=== PATIENT | male | born 1990 | race Caucasian/White ===

== ENCOUNTER 2016-10-02 19:09 | Inpatient (IN) | payer OTHER, BC ==
[~2016-10-02] VITALS: Ht 190.5 cm; Wt 99.8 kg
[~2016-10-02 19:09] MED LIST: CLON0.1T14 PO; DICY20TA28 PO; Gabapentin PO; HYDR-3895 PO; Ibuprofen PO
[2016-10-02 21:50] VITALS: BP 120/80
--- NOTE | 2016-10-02 21:50 | NUR ---
ADMISSION NOTE: Patient is a 26 y.o male admitted at [facility] at approximately 2150pm of 10/02/16 for medically supervised withdrawal from Opiates. Body search done and skin check performed in Room 316, no contraband found. Scratch noted on his left foot, left ankle, & right foot. Pt is cooperative during assessment. Patient is oriented to floor unit and room. Patient follows a regular diet at home with no known food and drug allergies. Pt wishes to be full Code. Patient is alert & oriented x4, ambulatory with a steady gait. Speech is clear and audible. Patient appears anxious but cooperative during interview. No shortness of breath noted. Respiration even & unlabored. Abdomen soft & non-distended. Bowel sounds active in all four quadrants. Patient complains of nausea, 8/10 body aches, mild headache, chills, sweating, stomach cramps, & runny nose. Bilateral hand tremors felt. Patient denies hallucinations. Vitals upon admission: B/P 120/80, NJ 98, Temp 97.9, RR 16, O2Sat 97%. Patient noted with past medical history of Anxiety, Depression, ADD and seizure history (October 2015) d/t benzo withdrawal. No suicide attempt in the past. Pt currently denies SI/HI. Pt was able to provide urine sample for drug screen upon admission and is voiding clear yellow urine with no problems. Substance use: 1. Suboxone- Pt is taking it as prescribed for Opiate maintenance. Patient takes 16mg daily for 2 months. Pt started using it since he wa 22 years old. Last use was 16mg daily yesterday morning 10/01/16. 2. Soma- Pt stated that he was taking three big white pills daily for 2 months. Pt has been taking it since 22 years old. Last use was 3 pills 2 days ago 09/30/16. Treatment History: Pt had multiple treatment history -[facility] in May 2016 Patient denies being hospitalized in the last 30 days. Patient reports his longest period of sobriety was for 6 months from October 2015 to April 2016. Patient reports symptoms when he does not use as shakingm chills, sweating, runny nose, teary eyes, headache, body aches, nausea/vomiting & diarrhea. Patient smokes 10 cigarettes daily. Patient refused pneumonia vaccines, educated patient risk & benefits but still refused. Patient does not have a PCP. Urine drug screen came back negative. Fall & Seizure precautions are in place. All needs attended & met. Safety precautions are in place. Bed locked in lowest position. Both side rails padded & up. Call light within pt's reach. Will continue to monitor. Dr. Grove seen pt. Awaiting for admission order. Will continue to monitor patient.
[2016-10-02] MEDS ORDERED: HYDROXYZINE PAMOATE 25 MG CAPSULE PO PRN (23:15)
[2016-10-02] MEDS ORDERED: LOPERAMIDE HCL 2 MG CAPSULE PO PRN ×2 (23:15)
[2016-10-02] MEDS ORDERED: CLONIDINE HCL 0.1 MG TABLET PO PRN (23:15)
[2016-10-02] MEDS ORDERED: ONDANSETRON 4 MG/2 ML VIAL IM PRN (23:15)
[2016-10-02] MEDS ORDERED: MAG HYDROX/AL HYDROX/SIMETH 30 ML LIQUID UDC PO PRN (23:15)
[2016-10-02] MEDS ORDERED: IBUPROFEN 600 MG TABLET PO PRN (23:15)
[2016-10-02] MEDS ORDERED: ACETAMINOPHEN 325 MG TABLET PO PRN (23:15)
[2016-10-02] MEDS ORDERED: MIRALAX 17 GM POWD.PACK PO PRN (23:15)
[2016-10-02] MEDS ORDERED: METHOCARBAMOL 750 MG TABLET PO PRN (23:15)
[2016-10-02] MEDS ORDERED: BUPRENORPHINE HCL 2 MG TAB.SUBL SL PRN (23:15)
[2016-10-02] MEDS ORDERED: MAGNESIUM HYDROXIDE 30 ML LIQUID UDC PO PRN (23:15)
[2016-10-02] MEDS ORDERED: diphenhydrAMINE 50 MG CAPSULE PO PRN (23:15)
[2016-10-02] MEDS ORDERED: DICYCLOMINE HCL 20 MG TABLET PO PRN (23:15)
[2016-10-02] MEDS ORDERED: KETOROLAC TROMETHAMINE 30 MG INJ IM PRN (23:15)
[2016-10-02 23:27] LABS: *AMPHETAMINE, URINE NEGATIVE (NEGATIVE); *BARBITURATE, URINE NEGATIVE (NEGATIVE); *CANNABINOID, URINE NEGATIVE (NEGATIVE); *COCCAINE, URINE NEGATIVE (NEGATIVE); *OPIATE, URINE NEGATIVE (NEGATIVE); *PHENCYCLIDINE SCREEN,URINE NEGATIVE (NEGATIVE)
[2016-10-02] MEDS ORDERED: BUPRENORPHINE HCL 2 MG TAB.SUBL SL ONE ×2 (23:30→23:45)
[2016-10-02] MEDS ORDERED: GABAPENTIN 300 MG CAPSULE PO SCH (23:30)
--- NOTE | 2016-10-02 23:40 | NUR ---
MEDICATION ADMINISTRATION Patient complains of 8/10 body aches, runny nose, anxiety, nausea, chills, stomach cramps, mild headache. Bilateral hand tremors felt. Administered Subutex 4mg per MD's order. COWS 12 CIWA 8 noted. Will continue to monitor patient.
[2016-10-02] MEDS ORDERED: GABAPENTIN 300 MG CAPSULE ONE (23:44)
[2016-10-03] VITALS: BP 116/63
--- NOTE | 2016-10-03 00:40 | NUR ---
PRN REASSESSMENT PATIENT LYING IN BED AND APPEARS COMFORTABLE. PATIENT VERBALIZED THAT MEDICATION HELPED IN HIS WITHDRAWAL SYMPTOMS. COWS 6 CIWA 3 NOTED AT THIS TIME. VITALS WNL. WILL CONTINUE TO MONITOR.
[2016-10-03 04:00] VITALS: BP 113/59
--- NOTE | 2016-10-03 07:26 | NUR ---
End of Shift Note: Patient is a 26 y/o male admitted last night 10/02/16 for Opiate dependence. Patient reported using Suboxone 16mg daily for 2 months. Patient with past medical history of Anxiety, Depression, ADD & Hx of Seizure(October 2015). Patient is on a regular diet with no known food and drug allergies. Full Code status. Seizure and Fall precaution. Patient noted with right foot scratch, left foot scratch & left ankle scratch. Dressing applied and intact. Patient also noted with scabs on BUE & BLE from scratching and picking. Patient is placed on a 5-day Subutex taper to be started @ 0900 in the morning. Last COWS is 6 CIWA 3 noted. Pt was given a one time dose of Subutex per MD's order. Pt reported that medication is effective in controlling his withdrawal by the decrease in COWS from 12 to 6 and CIWA from 8 to 3. Patient is compliant with medications. Patient still asleep at this time and appears comfortable. Patient remained stable and vitals remains WNL. All needs attended & met. Pt slept for 2 hours. Pt consumed 850ml of fluids. Voided 1x with no bowel movement noted. All needs attended & met. Safety precautions are in place. Will endorse to day shift nurse.
--- NOTE | 2016-10-03 07:29 | NUR ---
Start of Shift Notes: Received patient in his room. Alert and oriented x 4. Appears drowsy upon waking up. Respirations even an unlabored. No SOB noted. Skin warm and dry to touch. Abdomen soft and non-distended. (+) BS in all 4 quadrants. No complains of N/V/D or constipation noted. No complains of dysuria at this time. Ambulatory ad ras with steady gait. Patient is a 26 year old male admitted for subaxone and soma dependence who was placed on a 5-day Subutex taper as ordered. No adverse reactions noted. Has past medical hx of anxiety, depression, ADD and hx of seizures. On fall and seizure precautions. Educated patient on his current plan of care for the day and his medication regimen. On fall and seizure precautions. Encouraged oral fluid intake and encouraged group participation to learn new skills to prevent relapse.
[2016-10-03 08:00] VITALS: BP 117/60
[2016-10-03] MEDS ORDERED: TUBERCULIN,PURIF.PROT.DERIV. 5 TU/0.1 ML TEST ID ONE (09:00)
[2016-10-03] MEDS: NEOMY/BACITRAC/POLYMI OINT 28.35 GM TUBE TOP SCH ×2 (09:00→16:31)
[2016-10-03] MEDS: BUPRENORPHINE HCL 2 MG TAB.SUBL SL SCH ×4 (09:45→21:53)
[2016-10-03] MEDS: MULTIVITAMINS,THERAPEUTIC TABLET PO SCH (09:45)
[2016-10-03] MEDS: GABAPENTIN 300 MG CAPSULE PO SCH ×3 (09:45→21:53)
--- NOTE | 2016-10-03 09:47 | NUR ---
Robaxni and triple ATB refused: Patient complained of 7/10 generalized muscle aches and pain. Offered Robaxin but refused. Also refuses triple ATB ointment to be applied at this time. Education provided regarding risk and benefits. Patient verbalized understanding but still refused. Will continue to monitor closely.
[2016-10-03 10:07] LABS: BASOPHILS % (AUTO) 0.4 % (0.0-2.0); EOSINOPHILS # (AUTO) 0.5 K/uL (0.0-0.7); EOSINOPHILS % (AUTO) 6.2 % (0.0-7.0); HEMATOCRIT 41.1 % (36.7-47.1); HEMOGLOBIN 14.2 g/dL (12.5-16.3); LYMPHOCYTES # (AUTO) 2.4 K/uL (20.0-40.0); LYMPHOCYTES % (AUTO) 32.6 % (20.5-51.5); MEAN CORPUSCULAR HEMOGLOBIN 27.6 uug (23.8-33.4); MEAN CORPUSCULAR HGB CONC 35 g/dL (32.5-36.3); MONOCYTES # (AUTO) 0.6 K/uL (2.0-10.0); MONOCYTES % (AUTO) 8.1 % (0.0-11.0); NEUTROPHILS # (AUTO) 3.8 K/uL (1.8-8.9); NEUTROPHILS % (AUTO) 52.7 % (38.5-71.5); PLATELET COUNT (AUTO) 349 K/uL (152-348); RED BLOOD CELL COUNT(AUTO) 5.13 MIL/uL (4.06-5.63); RED CELL DISTRIBUTION WIDTH 13.2 % (12.1-16.2); WHITE BLOOD COUNT (AUTO) 7.3 K/uL (3.6-10.2)
[2016-10-03 10:17] LABS: ETHANOL < 3 MG/DL (0-0)
[2016-10-03 10:21] LABS: ALANINE AMINOTRANSFERASE 52 U/L (16-63); ALBUMIN 3.8 g/dL (3.4-5.0); ALKALINE PHOSPHATASE 82 U/L (50-136); ASPARTATE AMINOTRANSFERASE 31 U/L (15-37); BILIRUBIN,TOTAL 0.8 mg/dL (0.2-1.0); CALCIUM 8.8 mg/dL (8.5-10.1); CARBON DIOXIDE 29 mmol/L (21-32); CHLORIDE 105 mmol/L (98-107); GFR 91 mL/min (>60); GLUCOSE 112 mg/dL (74-106); MAGNESIUM 1.9 mg/dL (1.8-2.4); POTASSIUM 4.1 mmol/L (3.5-5.1); SODIUM SERUM 140 mmol/L (136-145); TOTAL PROTEIN, SERUM 7.3 g/dL (6.4-8.2); UREA NITROGEN, BLOOD 11 mg/dL (7-18)
[2016-10-03 10:33] LABS: THYROID STIMULATING HORMONE 2.572 mIU/mL (0.358-3.740)
[2016-10-03 10:40] LABS: HIV-1 p24 ANTIGEN NON REACTIVE (NONREACTIVE); HIV-1/2 ANTIBODY NON REACTIVE (NONREACTIVE)
--- NOTE | 2016-10-03 10:44 | NUR ---
Communication: Informed MD Grove regarding patient's constant complain of right knee pain related to his right knee injury. Per , he will enter in orders. Addendum: 10/03/16 at 1045 by WALTER HUNT LVN Error in charting. Charted on wrong patient.
--- NOTE | 2016-10-03 10:48 | NUR ---
MD Communication: Verified with MD regarding patient's hx of Soma use, per MD, start monitoring patient's CIWA q 4 hours and notify him if CIWA >8.
[2016-10-03 12:00] VITALS: BP 96/50
[2016-10-03 16:00] VITALS: BP 133/70
--- NOTE | 2016-10-03 18:49 | NUR ---
End of Shift : Patient is a 26 year old male admitted for subaxone and soma dependence who was placed on a 5-day Subutex taper as ordered. No adverse reactions noted. Has past medical hx of anxiety, depression, ADHD and seizures due to BZO withdrwal. Priot to admission, patient was using 16 mg of Subaxone and 3 big white pills of Soma daily x 2 months. VS monitored closely q 4 hours. No significant abnormalities noted. Withdrawal symptoms were closely monitored. Patient presented with anxiety, sweats, pupil dilation, fine tremors, yawning and anxiety. Initial COWS 11, CIWA 4. Last COWS 7/CIWA 3. Per patient, Subutex has been helping him with his withdrawal symptoms. Unable to participate in group today due to his withdrawal symptoms. Oral fluids encouraged. Appetite fair. Safety precautions in place. All needs met and attended. Will continue to monitor closely.
[2016-10-03] MEDS ORDERED: LORAZEPAM 2 MG/1 ML VIAL IM PRN (19:00)
[2016-10-03] MEDS ORDERED: LORAZEPAM 1 MG TABLET PO PRN ×2 (19:00)
--- NOTE | 2016-10-03 19:15 | NUR ---
Start of Shift Note: Patient is a 26 y/o male admitted last night 10/02/16 for Opiate dependence. Patient reported using Suboxone 16mg daily for 2 months and P[place], pt stated he was taking 3 big white pills daily for 2 months. Patient with past medical history of Anxiety, Depression, ADD & Hx of Seizure(October 2015). Patient is on a regular diet with no known food and drug allergies. Full Code status. Seizure and Fall precaution. Patient noted with right foot scratch, left foot scratch & left ankle scratch. Dressing applied and intact. Patient also noted with scabs on BUE & BLE from scratching and picking. Patient was started today on a 5-day Subutex taper and PRN Ativan for withdrawals. Last COWS is 7 CIWA 3 noted. No PRNs was given to pt during day shift. Patient is alert & oriented x4. Patient is ambulatory with a steady gait. No shortness of breath noted. Respiration even & unlabored. Abdomen soft & non-distended. Bowel sounds active in all four quadrants. Patient complains of nausea. No episode of vomiting noted. Patient appears anxious and slightly agitated. Patient complains of mild headache, sweating, chills, 6/10 leg and back pain. Bilateral hand tremors felt. No hallucinations. Patient denies SI/HI. Safety precautions are in place. Bed locked in lowest position. Both side rails up. Call light within pts reach. Will continue to monitor patient.
[2016-10-03 20:00] VITALS: BP 131/68
[2016-10-03] MEDS: ONDANSETRON ODT 4 MG TAB.RAPDIS SL PRN (21:53)
--- NOTE | 2016-10-03 21:53 | NUR ---
PRN Administration Patient noted with anxiety and agitation. Patient complains of nausea, mild headache, & sweating. No hallucinations noted. Hand tremors felt but not seen. CIWA 9 noted at this time. Vitals WNL. Offered Pain medication but refused. PRN Zofran & Ativan 1mg administered as ordered. Safety precautions are in place. Will continue to monitor patient.
--- NOTE | 2016-10-03 22:53 | NUR ---
PRN Reassessment Patient lying in bed and appears more calm and comfortable. Patient verbalized slight relief from anxiety and decreased in nausea. CIWA 5 noted at this time. All needs attended. Safety precautions are in place. Will continue to monitor patient.
[2016-10-04] VITALS: BP 142/78
[2016-10-04 04:00] VITALS: BP 106/61
--- NOTE | 2016-10-04 07:16 | NUR ---
End of Shift Note: Patient is a 26 y/o male admitted on 10/02/16 for Opiate dependence. Patient with past medical history of Anxiety, Depression, ADD & Hx of Seizure(October 2015). Patient is on a regular diet with no known food and drug allergies. Full Code status. Seizure and Fall precaution. Patient noted with right foot scratch, left foot scratch & left ankle scratch. Dressing applied and intact. Patient also noted with scabs on BUE & BLE from scratching and picking. Patient is on a 5-day Subutex taper and PRN Ativan for withdrawals. Last COWS is 9 CIWA 5 noted. Pt was given a PRN Zofran for nausea and Ativan PRN for a COWS of 5. Pt reported that medication is effective in controlling his withdrawal by the decrease in CIWA from 9 to 5. Patient is compliant with medications. Patient still asleep at this time and appears comfortable. Patient remained stable and vitals remains WNL. All needs attended & met. Pt slept for 7 hours. Pt consumed 2328ml of fluids. Voided 4x with no bowel movement noted. All needs attended & met. Safety precautions are in place. Will endorse to day shift nurse.
--- NOTE | 2016-10-04 07:50 | NUR ---
BEGINNING OF SHIFT Patient endorsement report received from shore working supervisor nurse, all pertinent information discussed. Patient with admitting Dx: opiate Dependence with ongoing 5 day Subutex taper as ordered, patient currently on day 2 of taper. Patient slept for 7 hours, with last ciwa score of: 5 and last cow score of: 5, as per shore working supervisor. Patient received PRN: Zofran and Ativan as per shore working supervisor medication were effective. Fall and seizure precautions observed at all times. Patient received awake, alert and oriented x4, educated regarding plan of care for the day and medication regimen with good verbal understanding. will continue to monitor closely. safety measures in place. call light with in reach.
[2016-10-04 08:33] VITALS: BP 108/65
[2016-10-04] MEDS: MULTIVITAMINS,THERAPEUTIC TABLET PO SCH (08:36)
[2016-10-04] MEDS: GABAPENTIN 300 MG CAPSULE PO SCH ×3 (08:36→21:57)
[2016-10-04] MEDS: BUPRENORPHINE HCL 2 MG TAB.SUBL SL SCH ×3 (08:37→21:57)
[2016-10-04] MEDS: NEOMY/BACITRAC/POLYMI OINT 28.35 GM TUBE TOP SCH ×2 (08:37→17:03)
[2016-10-04 12:59] VITALS: BP 113/71
[2016-10-04 14:06] LABS: HCV AB <0.1 s/co ratio (0.0-0.9); HEPATITIS B CORE AB, IgM Negative (Negative); HEPATITIS B SURFACE AG Negative (Negative)
[2016-10-04 16:45] VITALS: BP 118/77
--- NOTE | 2016-10-04 18:31 | NUR ---
PRN VISTARIL Patient reports increase in anxiety, provided with non pharmacological intervention with no relief, patient administered Vistaril as ordered, will endorse to night nurse nurse, to monitor effectiveness of medication.
--- NOTE | 2016-10-04 19:10 | NUR ---
END OF SHIFT Patient with admitting Dx: opiate dependance and continues on 5 day Subutex taper as ordered, well tolerated, no ASE noted, Patient currently on day 2 of taper. Patient encouraged adequate PO fluid intake as tolerated. 0900 patient presented with: c/o chills, mild bone and joint aches, moist eyes, tremors that can be felt but not seen, irritable, anxiety, and barely sweating with cow score of: 6 and ciwa score of: 5. 1300 assessment patient presented with heart rate of 96, c/o chills, mild bone and joint aches, moist eyes, tremors that can be felt, mild anxiety and barely sweating with cow score of: 6 and ciwa score of: 3. 1700 assessment patient presented with: heart rate of 85, c/o chills, mild bone and joint aches, moist eyes, tremors that can be felt, mild anxiety and barely sweating with cow score of: 6 and ciwa score of: 3.Detox medication effective at reducing withdrawal symptoms. Patient encouraged to attend group therapies/sessions to learn new coping skills to prevent relapse, preferred to stay in room, despite much encouragement. patient denies SI/HI. Administered no PRNs during shift. Safety measures in place. call light kept with in reach. Patient endorsed to carpenter nurse, all pertinent information discussed.
--- NOTE | 2016-10-04 19:15 | NUR ---
Start of Shift Note: Patient is a 26 y/o male admitted last night 10/02/16 for Opiate dependence. Patient reported using Suboxone 16mg daily for 2 months and Soma, pt stated he was taking 3 big white pills daily for 2 months. Patient with past medical history of Anxiety, Depression, ADD & Hx of Seizure(October 2015). Patient is on a regular diet with no known food and drug allergies. Full Code status. Seizure and Fall precaution. Patient noted with scratches & scabs on BUE & BLE from scratching and picking. Patient is on a 5-day Subutex taper and PRN Ativan for withdrawals. Last COWS is 6 CIWA 3 noted. Pt was given PRN Vistaril during day shift. Patient is alert & oriented x4. Patient is ambulatory with a steady gait. No shortness of breath noted. Respiration even & unlabored. Abdomen soft & non-distended. Bowel sounds active in all four quadrants. Patient complains of nausea. No episode of vomiting noted. Patient appears anxious and agitated. Patient complains of mild headache, chills, 5/10 body aches and mild headache. Bilateral hand tremors felt. No hallucinations. Patient denies SI/HI. Safety precautions are in place. Bed locked in lowest position. Both side rails up. Call light within pts reach. Will continue to monitor patient.
--- NOTE | 2016-10-04 19:31 | NUR ---
Prn Vistaril Reassessment Patient lying in bed and appears comfortable. Patient verbalized slight relief from anxiety. Will continue to monitor.
[2016-10-04 20:00] VITALS: BP 111/60
[2016-10-04] MEDS ORDERED: LORAZEPAM 1 MG TABLET PO PRN (21:00)
[2016-10-04] MEDS: ONDANSETRON ODT 4 MG TAB.RAPDIS SL PRN (21:57)
[2016-10-04] MEDS: DICYCLOMINE HCL 20 MG TABLET PO SCH (21:57)
[2016-10-04] MEDS: LORAZEPAM 1 MG TABLET PO PRN (21:57)
--- NOTE | 2016-10-04 21:57 | NUR ---
PRN Administration Patient noted with anxiety and agitation. Patient complains of nausea & mild headache.. No hallucinations noted. Hand tremors felt but not seen. CIWA 6 noted. Vitals WNL. PRN Motrin, Zofran & Ativan 1mg administered as ordered. MD aware. Safety precautions are in place. Will continue to monitor patient.
[2016-10-04] MEDS ORDERED: DICYCLOMINE HCL 20 MG TABLET ONE (22:04)
[2016-10-04] MEDS ORDERED: LORAZEPAM 1 MG TABLET ONE (22:04)
--- NOTE | 2016-10-04 22:57 | NUR ---
PRN Reassessment Patient verbalized slight relief from anxiety and decreased in nausea. Denies headache. CIWA 4 noted at this time. All needs attended. Safety precautions are in place. Will continue to monitor patient.
[2016-10-05] VITALS: BP 115/74
--- NOTE | 2016-10-05 01:49 | NUR ---
PRN Benadryl Patient complains of unable to fall asleep. PRN Benadryl given as ordered. Will continue to monitor.
--- NOTE | 2016-10-05 02:49 | NUR ---
PRN Reassessment Patient asleep at this time and appears comfortable. No s/s of distress noted at this time. No shortness of breath. Safety precautions are in place. will continue to monitor patient.
[2016-10-05 04:00] VITALS: BP 121/68
--- NOTE | 2016-10-05 07:01 | NUR ---
End of Shift Note: Patient is a 26 y/o male admitted on 10/02/16 for Opiate dependence and Soma. Patient with past medical history of Anxiety, Depression, ADD & Hx of Seizure(October 2015). Patient is on a regular diet with no known food and drug allergies. Full Code status. Seizure and Fall precaution. Patient noted with scratches & scabs on BUE & BLE from scratching and picking. Patient is on a 5-day Subutex taper and PRN Ativan for withdrawals. Last COWS is 5 CIWA 2 noted. Pt was given a PRN Zofran for nausea, Motrin for body aches, Benadryl for sleep and Ativan PRN for a CIWA of 6. Pt reported that medication is effective in controlling his withdrawals. Patient is compliant with medications. Patient still asleep at this time and appears comfortable. Patient remained stable and vitals remains WNL. All needs attended & met. Pt slept for 6 hours. Pt consumed 1200ml of fluids. Voided 3x with no bowel movement noted. All needs attended & met. Safety precautions are in place. Will endorse to day shift nurse.
[2016-10-05 08:00] VITALS: BP 110/62
--- NOTE | 2016-10-05 08:00 | NUR ---
START OF SHIFT NOTE Received report from night nurse, 26 year old male admitted for Opiate dependence. Regular diet with no known food and drug allergies. Full Code status. Pt with past medical history of Anxiety, Depression, ADD & Hx of Seizure(October 2015). Patient is on a Seizure and Fall precaution. Pt noted with scratches & scabs on BUE & BLE from scratching and picking. Pt is on a 5-day Subutex taper and PRN Ativan for withdrawals. Pt received PRN Vistaril for anxiety, Last COWS-6 CIWA 3, slept for 6 hours. Received pt alert & oriented x4. No shortness of breath noted. Respiration even & unlabored. Abdomen soft & non-distended. Bowel sounds active in all four quadrants. Pt appears anxious and agitated. No hallucinations. Pt denies SI/HI. Safety precautions are in place, call light within reach. Will continue to monitor.
[2016-10-05] MEDS ORDERED: BUPRENORPHINE HCL 2 MG TAB.SUBL SL SCH (09:00)
[2016-10-05] MEDS: GABAPENTIN 300 MG CAPSULE PO SCH ×3 (09:17→20:25)
[2016-10-05] MEDS: DICYCLOMINE HCL 20 MG TABLET PO SCH ×3 (09:17→20:26)
[2016-10-05] MEDS: MULTIVITAMINS,THERAPEUTIC TABLET PO SCH (09:17)
[2016-10-05] MEDS: NEOMY/BACITRAC/POLYMI OINT 28.35 GM TUBE TOP SCH ×2 (09:18→17:21)
[2016-10-05 12:00] VITALS: BP 114/75
[2016-10-05] MEDS ORDERED: diphenhydrAMINE 2% 28.4 GM CREAM TP PRN (12:00)
[2016-10-05] MEDS: BACLOFEN 10 MG TABLET PO SCH ×2 (15:54→20:25)
[2016-10-05] MEDS: BUPRENORPHINE HCL 2 MG TAB.SUBL SL SCH ×2 (15:54→20:26)
[2016-10-05 16:00] VITALS: BP 124/73
--- NOTE | 2016-10-05 19:22 | NUR ---
END OF SHIFT NOTE Gave report to night nurse, 26 year old male admitted for Opiate dependence. Regular diet with no known food and drug allergies. Full Code status. Pt with past medical history of Anxiety, Depression, ADD & Hx of Seizure(October 2015). Patient is on a Seizure and Fall precaution. Pt noted with scratches & scabs on BUE & BLE from scratching and picking. Pt is on a 5-day Subutex taper and PRN Ativan for withdrawals. Pt did not receive any PRN medication during shift, COWS-5 CIWA 5, Pt's total intake 1900ml, Voided x4. Vital signs remained stable. Pt attended groups and activities. Safety measures in place bed on lowest position with side rails x2 up for safety, call light within reach. Pt endorse pt to night nurse in stable condition. Addendum: 10/05/16 at 1925 by BASSEM ARAYA LVN CORRECT- CIWA-3
[2016-10-05 20:00] VITALS: BP 124/88
--- NOTE | 2016-10-05 20:00 | NUR ---
Start of Shift Pt is a 26 year old male admitted for Opiate dependence, placed on 5 day Subutex taper. Pt reported using Suboxone 16mg/daily x2 months and Soma "3 big white pills/daily x2 months. PMH: anxiety, depression ADD, hx of seizure October 2015 d/t benzo withdrawal. NKA, regular diet, fall/seizure precautions and full code. Upon assessment, pt presented with anxiety/agitated, body/muscle aches, clammy/flushed skin, respirations even/unlabored, denies SOB/chest pain, denies n/v/d, denies SI/HI, bowel sounds active x4, abdomen soft. Safety measures in place, call light within reach, side rails up x2, bed locked and in low position. Will continue to monitor.
[2016-10-05] MEDS: LORAZEPAM 1 MG TABLET PO PRN (20:47)
--- NOTE | 2016-10-05 20:47 | NUR ---
PRN Administration 2046 Pt is anxious/agitated, pt is irritated, restless, face flushed, skin clammy, CIWA 8. Non-pharmacological methods ineffective. Ativan 1mg PRN administered. Safety measures in place. Will continue to monitor.
[2016-10-05] MEDS ORDERED: PRAZOSIN HCL 1 MG CAPSULE PO SCH (21:00)
--- NOTE | 2016-10-05 21:47 | NUR ---
PRN Reassessment Upon reassessment, pt verbalizes that anxiety is subsiding. Pt states he is , "calmer then before". Pt is in bed, watching TV, noted to be less irritated/agitated. CIWA 4. Needs met, safety measures in place, will continue to monitor.
[2016-10-06] VITALS: BP 129/74
--- NOTE | 2016-10-06 | NUR ---
Vital Signs BP 129/74, pulse 97, SpO2 97%, respirations 14, temp 98 CIWA/COWS deferred d/t pt sleeping, to assess while pt is awake as ordered. Safety measures in place. Will continue to monitor.
[2016-10-06 04:00] VITALS: BP 119/69
--- NOTE | 2016-10-06 04:00 | NUR ---
Vital Signs BP 119/69, pulse 98, SpO2 98%, respirations 14, temp 97.9 CIWA/COWS deferred d/t pt sleeping, to assess while pt is awake as ordered. Safety measures in place. Will continue to monitor.
--- NOTE | 2016-10-06 07:00 | NUR ---
End of Shift Pt is a 26 year old male admitted for Opiate dependence, placed on 5 day Subutex taper. Pt reported using Suboxone 16mg/daily x2 months and Soma "3 big white pills/daily x2 months. PMH: anxiety, depression ADD, hx of seizure October 2015 d/t benzo withdrawal. NKA, regular diet, fall/seizure precautions and full code. During shift, pt presented with anxiety/agitation, irritation, body/muscle aches, clammy/flushed skin - scheduled taper medications administered, COWS 5. Ativan 1mg PRN administered, CIWA 8 decreased to CIWA 4. Pt slept for 5 hours, intake of 2300 ml PO and voids x3. Safety measures in place, call light within reach, side rails up x2, bed locked and in low position. Endorsed to day shift nurse.
--- NOTE | 2016-10-06 07:30 | NUR ---
START OF SHIFT NOTE Received report from night nurse, 26 year old male admitted for Opiate dependence. Regular diet with no known food and drug allergies. Full Code status. Pt with past medical history of Anxiety, Depression, ADD & Hx of Seizure(October 2015). Patient is on a Seizure and Fall precaution. Pt noted with scratches & scabs on BUE & BLE from scratching and picking. Pt is on a 5-day Subutex taper and PRN Ativan for withdrawals. Pt received PRN Ativan 1mg for anxiety CIWA was-8 medication effective per night nurse CIWA down to 4, Last COWS-5 CIWA 4, slept for 5 hours. Received pt alert & oriented x4. No shortness of breath noted. Respiration even & unlabored. Abdomen soft & non-distended. Bowel sounds active in all four quadrants. Pt appears anxious and agitated. No hallucinations. Pt denies SI/HI. Safety precautions are in place, call light within reach. Will continue to monitor.
[2016-10-06 08:00] VITALS: BP 102/63
[2016-10-06] MEDS: BACLOFEN 10 MG TABLET PO SCH ×3 (08:20→21:33)
[2016-10-06] MEDS: GABAPENTIN 300 MG CAPSULE PO SCH ×3 (08:20→21:34)
[2016-10-06] MEDS: BUPRENORPHINE HCL 2 MG TAB.SUBL SL SCH ×3 (08:20→21:33)
[2016-10-06] MEDS: DICYCLOMINE HCL 20 MG TABLET PO SCH ×3 (08:20→21:33)
[2016-10-06] MEDS: MULTIVITAMINS,THERAPEUTIC TABLET PO SCH (08:20)
[2016-10-06] MEDS: NEOMY/BACITRAC/POLYMI OINT 28.35 GM TUBE TOP SCH ×2 (08:22→16:37)
[2016-10-06 12:00] VITALS: BP 137/86
[2016-10-06] MEDS ORDERED: MAGNESIUM CITRATE 296 ML BOTTLE PO PRN (12:45)
[2016-10-06] MEDS: DOCUSATE SODIUM 250 MG CAPSULE PO SCH (14:58)
[2016-10-06] MEDS ORDERED: NAPROXEN 500 MG TABLET PO ONE (15:00)
[2016-10-06 16:00] VITALS: BP 127/76
[2016-10-06] MEDS ORDERED: LORAZEPAM 1 MG TABLET PO ONE (16:00)
--- NOTE | 2016-10-06 16:36 | NUR ---
ATIVAN X1 DOSE Pt noted anxious/agitated,restless, face flushed, skin clammy,tremors can be felt, CIWA noted 10, increased HR-114. Non-pharmacological methods ineffective. notified new order to administer Ativan 2mg x1. Administered Ativan 2mg as ordered. Safety measures in place. Will continue to monitor.
--- NOTE | 2016-10-06 17:36 | NUR ---
ATIVAN REASSESSMENT Pt reported medication effective, CIWA noted-2.
--- NOTE | 2016-10-06 19:01 | NUR ---
END OF SHIFT NOTE Gave report to night nurse, 26 year old male admitted for Opiate dependence. Regular diet with no known food and drug allergies. Full Code status. Pt with past medical history of Anxiety, Depression, ADD & Hx of Seizure(October 2015). Patient is on a Seizure and Fall precaution. Pt noted with scratches & scabs on BUE & BLE from scratching and picking. Pt is on a 5-day Subutex taper and PRN Ativan for withdrawals. Pt received x1 dose of Ativan effective. medication during shift, COWS-6 CIWA 2, Pt's total intake 2451ml, Voided x3, BM x1. Vital signs remained stable. Pt attended groups and activities. Safety measures in place bed on lowest position with side rails x2 up for safety, call light within reach. Pt endorse pt to night nurse in stable condition.
[2016-10-06 20:00] VITALS: BP 139/82
--- NOTE | 2016-10-06 20:00 | NUR ---
Start of Shift Pt is a 26 year old male admitted for Opiate dependence, placed on 5 day Subutex taper. Pt reported using Suboxone 16mg/daily x2 months and Soma "3 big white pills/daily x2 months. PMH: anxiety, depression ADD, hx of seizure October 2015 d/t benzo withdrawal. NKA, regular diet, fall/seizure precautions and full code. Upon assessment, pt presents with anxiety/agitation/irritation, clammy/flushed skin, respirations even/unlabored, denies SOB/chest pain, denies SI/HI, bowel sounds active x4, abdomen soft. Safety measures in place, call light within reach, side rails up x2, bed locked and in low position. Will continue to monitor.
[2016-10-06] MEDS: PRAZOSIN HCL 1 MG CAPSULE PO SCH (21:33)
[2016-10-06] MEDS: NAPROXEN 500 MG TABLET PO SCH (21:34)
[2016-10-07] VITALS: BP 128/78
[2016-10-07] MEDS: ONDANSETRON ODT 4 MG TAB.RAPDIS SL PRN (00:03)
--- NOTE | 2016-10-07 00:03 | NUR ---
PRN Administration Pt c/o nausea , no emesis presented. Zofran 4mg ODT administered. Safety measures in place. will continue to monitor.
--- NOTE | 2016-10-07 01:00 | NUR ---
PRN Reassessment Upon reassessment, pt reports relief of nausea. Pt returned to sleep. Safety measures in place. Will continue to monitor
[2016-10-07 04:00] VITALS: BP 110/80
--- NOTE | 2016-10-07 04:00 | NUR ---
Vital Signs BP 110/80, pulse 83, respirations 16, SpO2 97%, temp 98.1, no reports of pain CIWA/COWS deferred d/t pt sleeping, to assess while pt is awake as ordered. Safety measures in place. Will continue to monitor.
--- NOTE | 2016-10-07 07:00 | NUR ---
End of Shift Pt is a 26 year old male admitted for Opiate dependence, placed on 5 day Subutex taper. Pt reported using Suboxone 16mg/daily x2 months and Soma "3 big white pills/daily x2 months. PMH: anxiety, depression ADD, hx of seizure October 2015 d/t benzo withdrawal. NKA, regular diet, fall/seizure precautions and full code. During shift, pt presented with anxiety/agitation/irritation, clammy/flushed skin - scheduled medications administered, CIWA 4 and COWS 4. Zofran 4mg ODT administered for nausea - effective. Pt slept for 5 hours, intake of 1151 ml PO and voids x2. Safety measures in place, call light within reach, side rails up x2, bed locked and in low position. Endorsed to day shift nurse.
--- NOTE | 2016-10-07 07:03 | NUR ---
Start of Shift Endorsement received from nightshift nurse. Pt is a 26 y/o male admitted for Suboxone dependence. Pt has been placed on a 5 day Subutex taper. Pt is tolerating the taper, mildly withdrawing AEB COWS 4, CIWA 4 at midnight. Pt received PRN Zofran for reported emesis and nausea. Pt slept 5 hours, VS WNL, Full Code.PT is alert and oriented x4.Pt is in STABLE condition at this time. Remains compliant with medication and diet regimen. All needs have been met, All safety measures in place per hospital policy. Bed in lowest position, side rails up x2, call-light within reach. Will continue to monitor
[2016-10-07 08:00] VITALS: BP 92/53
[2016-10-07] MEDS: GABAPENTIN 300 MG CAPSULE PO SCH ×3 (08:48→21:28)
[2016-10-07] MEDS: VENLAFAXINE XR 75 MG CAP.SR.24H PO SCH (08:49)
[2016-10-07] MEDS: FAMOTIDINE 20 MG TABLET PO SCH (08:49)
[2016-10-07] MEDS: DICYCLOMINE HCL 20 MG TABLET PO SCH ×3 (08:49→21:30)
[2016-10-07] MEDS: MULTIVITAMINS,THERAPEUTIC TABLET PO SCH (08:49)
[2016-10-07] MEDS: BACLOFEN 10 MG TABLET PO SCH (08:49)
[2016-10-07] MEDS: NAPROXEN 500 MG TABLET PO SCH (08:49)
[2016-10-07] MEDS: DOCUSATE SODIUM 250 MG CAPSULE PO SCH (08:49)
[2016-10-07] MEDS: NEOMY/BACITRAC/POLYMI OINT 28.35 GM TUBE TOP SCH ×2 (08:50→17:00)
[2016-10-07] MEDS ORDERED: BUPRENORPHINE HCL 2 MG TAB.SUBL SL SCH (09:00)
[2016-10-07 12:00] VITALS: BP 100/56
[2016-10-07] MEDS ORDERED: NAPROXEN 500 MG TABLET PO PRN (14:15)
[2016-10-07] MEDS ORDERED: BACLOFEN 20 MG TABLET PO PRN (14:15)
[2016-10-07] MEDS: BUPRENORPHINE HCL 2 MG TAB.SUBL SL SCH ×2 (15:03→21:28)
[2016-10-07 16:00] VITALS: BP 132/77
[2016-10-07] MEDS ORDERED: QUETIAPINE FUMARATE 25 MG TABLET PO PRN (19:15)
--- NOTE | 2016-10-07 19:27 | NUR ---
End of Shift Endorsement given to nightshift nurse. Pt is a 26 y/o male admitted for Suboxone dependence. Pt has been placed on a 5 day Subutex taper. Pt is tolerating the taper, mildly withdrawing AEB COWS 3, CIWA 3 at 1600. Pt participated in one group and activities. Pt did not receive any PRN medications. Intake: 1710ml, Void x2, BM x0. VS WNL, Full Code.PT is alert and oriented x4.Pt is in STABLE condition at this time. Remains compliant with medication and diet regimen. All needs have been met, All safety measures in place per hospital policy. Bed in lowest position, side rails up x2, call-light within reach. Will continue to monitor
--- NOTE | 2016-10-07 19:30 | NUR ---
START OF SHIFT-- Pt is a 26 y/o male admitted for Suboxone dependence. Pt is on a 5 day Subutex taper. Pt is tolerating the taper well, last COWS 3, CIWA 3 at 1600. Full Code status,on regular diet,NKA.Pt is alert and oriented x4.Pt is in STABLE condition at this time. Remains compliant with medication and diet regimen. All needs have been met, All safety measures in place per hospital policy. Bed in lowest position, side rails up x2, call-light within reach. Will continue to monitor.
[2016-10-07 20:00] VITALS: BP 142/79
[2016-10-07] MEDS: PRAZOSIN HCL 1 MG CAPSULE PO SCH (21:30)
[2016-10-08] VITALS: BP 137/66
--- NOTE | 2016-10-08 | NUR ---
MID NIGHT COWS=2,CIWA=1.
--- NOTE | 2016-10-08 04:00 | NUR ---
PT REFUSED V/S.COWS AND CIWA DEFERRED.
--- NOTE | 2016-10-08 06:44 | NUR ---
END OF SHIFT-- Pt is a 26 y/o male admitted for Suboxone dependence. Pt is on a 5 day Subutex taper. Pt is tolerating the taper well, last COWS 2, CIWA 1 at MID NIGHT. Full Code status,on regular diet,NKA.Pt is alert and oriented x4.Pt is in STABLE condition at this time. Remains compliant with medication and diet regimen.Pt refused to take any PRN meds as ordered last night;slept only 4 hrs last night,fluid intake was 2182 mls,voided x 2,BM x 1. All needs have been met, All safety measures in place per hospital policy. Bed in lowest position, side rails up x2, call-light within reach. Will continue to monitor.
--- NOTE | 2016-10-08 07:55 | NUR ---
START OF SHIFT NOTE Received report from night nurse, 26 year old male admitted for Opiate dependence. Regular diet with no known food and drug allergies. Full Code status. Pt with past medical history of Anxiety, Depression, ADD & Hx of Seizure(October 2015). Patient is on a Seizure and Fall precaution. Pt noted with scratches & scabs on BUE & BLE from scratching and picking. Pt is on a 5-day Subutex taper. Per night nurse pt refused to take any PRN medication. Last COWS-2 CIWA 1, slept for 4 hours. Received pt alert & oriented x4. No shortness of breath noted. Respiration even & unlabored. Abdomen soft & non-distended. Bowel sounds active in all four quadrants. Pt appears anxious and agitated. No hallucinations. Pt denies SI/HI. Safety precautions are in place, call light within reach. Will continue to monitor.
[2016-10-08 08:00] VITALS: BP 107/80
[2016-10-08] MEDS: GABAPENTIN 300 MG CAPSULE PO SCH ×3 (08:32→20:34)
[2016-10-08] MEDS: DICYCLOMINE HCL 20 MG TABLET PO SCH ×3 (08:32→20:35)
[2016-10-08] MEDS: FAMOTIDINE 20 MG TABLET PO SCH (08:33)
[2016-10-08] MEDS: MULTIVITAMINS,THERAPEUTIC TABLET PO SCH (08:33)
[2016-10-08] MEDS: DOCUSATE SODIUM 250 MG CAPSULE PO SCH (08:33)
[2016-10-08] MEDS: NEOMY/BACITRAC/POLYMI OINT 28.35 GM TUBE TOP SCH ×2 (08:48→16:24)
[2016-10-08] MEDS: VENLAFAXINE XR 75 MG CAP.SR.24H PO SCH (08:49)
--- NOTE | 2016-10-08 08:49 | NUR ---
REFUSED MED Pt refused scheduled Effexor 75mg 1 cap Po, offered x3 risk and benefits explained. Pt still refused. Will cont to monitor.
[2016-10-08] MEDS ORDERED: BUPRENORPHINE HCL 2 MG TAB.SUBL SL SCH (09:00)
[2016-10-08 12:00] VITALS: BP 90/55
[2016-10-08 16:00] VITALS: BP 141/71
[2016-10-08 17:12] LABS: *AMPHETAMINE, URINE NEGATIVE (NEGATIVE); *BARBITURATE, URINE NEGATIVE (NEGATIVE); *CANNABINOID, URINE NEGATIVE (NEGATIVE); *COCCAINE, URINE NEGATIVE (NEGATIVE); *OPIATE, URINE NEGATIVE (NEGATIVE); *PHENCYCLIDINE SCREEN,URINE NEGATIVE (NEGATIVE)
--- NOTE | 2016-10-08 18:47 | NUR ---
END OF SHIFT NOTE Gave report to night nurse, 26 year old male admitted for Opiate dependence. Regular diet/NKA/Full Code status. Pt with past medical history of Anxiety, Depression, ADD & Hx of Seizure(October 2015). Patient is on a Seizure and Fall precaution. Pt noted with scratches & scabs on BUE & BLE from scratching and picking. Pt completed his 5 Subutex taper tolerated well. Pt did not receive any PRN during shift. Pt refused his scheduled [id number]. Pt's total intake 2000ml, Voided x2, BM x1. Vital signs remained stable. Pt attended groups and activities. Last CIWA-2, COWS-3. Pt scheduled for discharge in Am, urine drug screen completed and placed in the chart. Safety measures in place bed on lowest position with side rails x2 up for safety, call light within reach. Pt endorsed night nurse in stable condition.
--- NOTE | 2016-10-08 19:55 | NUR ---
Start of Shift Note: Report received from day shift nurse. Pt is a 26 yo male admitted on 10/02/16 for medically-supervised withdrawal from Suboxone and Soma. Pt reports using 16mg Suboxone and Soma 3 pills daily for 2 months. Pt has completed a 5-day Subutex taper and is to discharge tomorrow. Last day shift COWS=3, CIWA=2. Pt reports NKDA/NKFA. Pt is on a regular diet. Pt reports med hx: anxiety, depression, ADHD, seizure x1 (2016). Pt received in room, and reports chills, anxiety, diaphoresis. Pt is noted to be guarded and agitated. Bed is in low position and locked, side rails up x2, call light within reach. Will continue to monitor.
[2016-10-08 20:00] VITALS: BP 108/62
[2016-10-08] MEDS: PRAZOSIN HCL 1 MG CAPSULE PO SCH (20:34)
[2016-10-09] VITALS: BP 117/67
--- NOTE | 2016-10-09 | NUR ---
COWS/CIWA Deferred: COWS and CIWA assessments are deferred for sleep. VS: 97.3, 100, 18, 100%, 117/67. Addendum: 10/09/16 at 0240 by DEVYN SANTANA RN Amended: Links added.
[2016-10-09 04:00] VITALS: BP 119/55
--- NOTE | 2016-10-09 04:00 | NUR ---
COWS/CIWA Deferred: COWS/CIWA deferred while patient sleeps. VS: 97.9, 64, 16, 100%, 119/55. Addendum: 10/09/16 at 0602 by DEVYN SANTANA RN Amended: Links added.
--- NOTE | 2016-10-09 07:01 | NUR ---
End of Shift Note: Pt is a 26 yo male admitted to [facility] on 10/02/16 for medically-supervised withdrawal from Suboxone and Soma. Pt reports med hx: anxiety, depression, ADHD, seizure x1 (2016). Pt reports NKDA/NKFA. Pt is on a regular diet. Pt reports using 16mg Suboxone and Soma 3 pills daily for 2 months. Pt has completed a 5-day Subutex taper and is to discharge today. Scheduled medication regime did not effectively manage s/s of withdrawal this shift, as pt continued to complain of anxiety, agitation, diaphoresis but refuses all non-controlled medications for relief. No PRN medications were administered this shift. Last COWS=4, CIWA=5 at 20:00. V/S stable throughout shift, with elevated HR of 82 at 20:00 and 100 at 00:00. Total fluid intake this shift: 700 ml; output: urine x 1 and BM x 0. Pt currently in bed and slept 6 hours this shift. Pt endorsed to day shift nurse.
--- NOTE | 2016-10-09 07:45 | NUR ---
START OF SHIFT Received pt this am AOx4. Pt reports he "couldn't really sleep", he also states he is anxious and sweaty with a headache. Pt scheduled for discharge today. Last CIWA 5 COWS 4 per night nurse. No PRNs needed during last shift per night nurse. Pt slept 6 hours. VSS. Will monitor.
[2016-10-09 08:00] VITALS: BP 108/67
[2016-10-09] MEDS: NEOMY/BACITRAC/POLYMI OINT 28.35 GM TUBE TOP SCH (08:04)
[2016-10-09] MEDS: DICYCLOMINE HCL 20 MG TABLET PO SCH (08:04)
[2016-10-09] MEDS: DOCUSATE SODIUM 250 MG CAPSULE PO SCH (08:04)
[2016-10-09] MEDS: FAMOTIDINE 20 MG TABLET PO SCH (08:04)
[2016-10-09] MEDS: VENLAFAXINE XR 75 MG CAP.SR.24H PO SCH (08:04)
[2016-10-09] MEDS: GABAPENTIN 300 MG CAPSULE PO SCH (08:04)
[2016-10-09] MEDS: MULTIVITAMINS,THERAPEUTIC TABLET PO SCH (08:04)
[2016-10-09] MEDS ORDERED: Baclofen PO (08:59)
[2016-10-09] MEDS ORDERED: QUET25TA PO (08:59)
[2016-10-09] MEDS ORDERED: Naproxen PO (08:59)
[2016-10-09] MEDS ORDERED: Docusate Sodium PO (08:59)
[2016-10-09] MEDS ORDERED: Gabapentin PO (08:59)
[2016-10-09] MEDS ORDERED: VENL75CA56 PO (08:59)
[2016-10-09] MEDS ORDERED: Famotidine PO (08:59)
[2016-10-09] MEDS ORDERED: DIPH50CA37 PO (08:59)
[2016-10-09] MEDS ORDERED: HYDR-3895 PO (08:59)
[2016-10-09] MEDS ORDERED: DICY20TA28 PO (08:59)
--- NOTE | 2016-10-09 10:01 | NUR ---
DISCHARGE NOTE Pt is in stable condition. Vital signs stable. Pt is Aox4, skin intact. Pt denies suicidal and homicidal ideations. All discharge paperwork complete, signed and dated. Pt educated on discharge instructions, what to do after discharge and when to contact MD. Pt verbalized understanding. Pt last COWS 2 CIWA 3. Pt was escorted by PLANNING LEAD to lobby on 10/09/16 at 1000 where lets roll transportation picked up patient. Pt left the building with all belongings and rx. Pt did not bring any medications with him on the unit. md has been notified of pt discharge.
== END 2016-10-09 10:00 | disposition home or self-care (01) | DRG 895 ==
LOC: SRC 21:05
PROVIDERS: ADMIT Internal Medicine; ATTEND Internal Medicine
PROC: HZ2ZZZZ Detoxification Services for Substance Abuse Treatment (ICD-10-PCS; principal; 2016-10-02)
PROC: HZ41ZZZ Group Counseling for Substance Abuse Treatment, Behavioral (ICD-10-PCS; 2016-10-07)
DX: F11.23 Opioid dependence with withdrawal (principal); F13.20 Sedative, hypnotic or anxiolytic dependence, uncomplicated; Z81.8 Family history of other mental and behavioral disorders; Z59.1 Inadequate housing; F10.21 Alcohol dependence, in remission; F17.210 Nicotine dependence, cigarettes, uncomplicated; Z83.3 Family history of diabetes mellitus; K59.03 Drug induced constipation; I15.9 Secondary hypertension, unspecified; G47.00 Insomnia, unspecified; F51.4 Sleep terrors [night terrors]; F41.0 Panic disorder [episodic paroxysmal anxiety]
CPT/HCPCS: 36415; 70030-TC; 80307; 83735; 84443; 85025; 86580; 86592; 86705; 86803; 87340; 87806; A4663; G6040-TC; Q0162; Q0163

== ENCOUNTER 2016-11-23 20:32 | Inpatient (IN) | payer BC, OTHER ==
[~2016-11-23] VITALS: Ht 190.5 cm; Wt 95.3 kg
[~2016-11-23 20:32] MED LIST changes: +Baclofen PO; +DIPH50CA37 PO; +Docusate Sodium PO; +Famotidine PO; -Ibuprofen PO; +Naproxen PO; +QUET25TA PO; +VENL75CA56 PO
[2016-11-23 23:30] VITALS: BP 117/57
--- NOTE | 2016-11-23 23:30 | NUR ---
Pre-Admission Pre-admission assessment performed in the intake department of [facility]. Pt appears mildly drowsy, is A&O, ambulatory with a steady gait, and answers questions appropriately. He denies food or drug allergies. Vital signs are B/P 117/57, HR 86, RR 16, O2 sat 97%, T 98.0, pain 0/10. He reports that he is here to be treated for BZD and heroin dependence. Last used heroin 0.5grams tonight at 2200. Last used xanax last night. Ad[facility] the [facility].
[2016-11-24] MEDS ORDERED: MIRALAX 17 GM POWD.PACK PO PRN
[2016-11-24] MEDS ORDERED: diphenhydrAMINE 50 MG CAPSULE PO PRN
[2016-11-24] MEDS ORDERED: ONDANSETRON ODT 4 MG TAB.RAPDIS SL PRN
[2016-11-24] MEDS ORDERED: ACETAMINOPHEN 325 MG TABLET PO PRN
[2016-11-24] MEDS ORDERED: MAGNESIUM HYDROXIDE 30 ML LIQUID UDC PO PRN
[2016-11-24] MEDS ORDERED: BUPRENORPHINE HCL 2 MG TAB.SUBL SL PRN
[2016-11-24] MEDS ORDERED: LOPERAMIDE HCL 2 MG CAPSULE PO PRN ×2
[2016-11-24] MEDS ORDERED: LORAZEPAM 2 MG/1 ML VIAL IM PRN
[2016-11-24] MEDS ORDERED: THIAMINE HCL 200 MG/2 ML VIAL IM ONE
[2016-11-24] MEDS ORDERED: DICYCLOMINE HCL 20 MG TABLET PO PRN
[2016-11-24] MEDS ORDERED: LORAZEPAM 1 MG TABLET PO PRN ×2
[2016-11-24] MEDS ORDERED: MAG HYDROX/AL HYDROX/SIMETH 30 ML LIQUID UDC PO PRN
[2016-11-24 00:08] LABS: *AMPHETAMINE, URINE NEGATIVE (NEGATIVE); *BARBITURATE, URINE NEGATIVE (NEGATIVE); *CANNABINOID, URINE NEGATIVE (NEGATIVE); *COCCAINE, URINE NEGATIVE (NEGATIVE); *OPIATE, URINE POSITIVE (NEGATIVE); *PHENCYCLIDINE SCREEN,URINE NEGATIVE (NEGATIVE)
[2016-11-24] MEDS: IBUPROFEN 400 MG TABLET PO PRN ×2 (00:39→09:46)
--- NOTE | 2016-11-24 00:40 | NUR ---
PRN Ativan, Motrin, and Zofran Pt reports feeling anxious, with nausea, headache, and inability to relax. Last used xanax 11/22/16. COWS 5 and CIWA 7. PRN Ativan, Motrin, and Zofran administered.
[2016-11-24] MEDS ORDERED: LORAZEPAM 1 MG TABLET ONE (00:41)
[2016-11-24] MEDS ORDERED: ONDANSETRON HCL 4 MG TABLET ONE (00:41)
[2016-11-24] MEDS ORDERED: IBUPROFEN 400 MG TABLET ONE (00:42)
[2016-11-24] MEDS ORDERED: ONDANSETRON HCL 4 MG TABLET PO PRN (00:45)
--- NOTE | 2016-11-24 01:20 | NUR ---
ADMISSION Pt is a 26 yo male admitted to the [facility] at 2341 on 11/23/16. He is A&O and ambulatory. Body check performed by ACTUARY CLERK and skin check performed by the nurse. He appears drowsy during assessment but answers questions appropriately. Pt denies allergies, is full code status, and on a regular diet. Vitals in intake are B/P 117/57, HR 86, RR 16, O2 sat 97%, and T 98.0. Pt is 64 and weighs 210lb. He has a PMH of w/d related seizures, anxiety, depression, and ADHD. Last seizure was 10/2015. Lung sounds clear, PERRLA, brisk capillary refill, bowel sounds present. He has several small abrasions and scabs on the lower extremities due to picking his skin while under the influence of drugs. History of use 1. Xanax 8mg/day for the past 5 weeks. Last used 8mg on 11/22/16 at night. He has used BZDs for 7 years. 2. ETOH 6 beers per day for the past 5 weeks. Last drank 6 beers 11/22/16 at night. He has used ETOH for 10 years. 3. Heroin IV 1.5 grams per day for the past 5 weeks. Last used 0.5 grams today at 2200. He used 1.5 grams total today. He has used heroin for the past 7 years. Treatment History [facility] 09/2016 [facility] 2015 [facility] 05/2016 Pt smokes 1 pack of cigarettes per day. Symptoms when he doesn't use include "shaky, cold sweats, diarrhea, vomit, hallucinate, body aches, restlessness, runny nose, watery eyes". His longest period of sobriety was 6 months in 2016. He decided to come to treatment today because "I can't do it anymore". He does not have a primary care physician. This treatment will be different because "I'm going to stay sober this time. I won't drink at all". COWS 5 and CIWA 7 on admission. Admission orders received. Pt educated regarding use of the call light and all questions answered. Fall and seizure precautions in place. Bed is down with call light in reach.
--- NOTE | 2016-11-24 01:25 | NUR ---
Nursing Note Pt refused blood draw when cma arrived on the unit. Explained to patient the importance of obtaining labs and he continued to refuse. He states "I don't want to right now, I'll do it tomorrow".
--- NOTE | 2016-11-24 01:40 | NUR ---
PRN Ativan, Motrin, and Zofran reassessment PRN Ativan, Motrin, and Zofran effective. Pt is lying comfortably in bed resting with eyes closed. Respirations even and unlabored. Safety measures in place.
[2016-11-24 04:00] VITALS: BP 105/57
--- NOTE | 2016-11-24 07:10 | NUR ---
Start of Shift Endorsement received from nightshift nurse. PT is a 26 y/o male admitted for Xanax, alcohol and Heroin. Pt has been placed on a 5 day Valium and 5 day Subutex taper. Pt is set to began the tapers today, 11/24/16. Pt received PRN Motrin, Ativan and Zofran for withdrawal symptoms. Pt presented with mild withdrawal symptoms at 0400 AEB CIWA 1, COWS 2. VS WNL. Full Code. . Pt is in STABLE condition at this time. Remains compliant with medication and diet regimen. All needs have been met, All safety measures in place per hospital policy. Bed in lowest position, side rails up x2, call-light within reach. Will continue to monitor.
[2016-11-24 07:17] LABS: ETHANOL < 3 MG/DL (0-0)
--- NOTE | 2016-11-24 07:26 | NUR ---
END OF SHIFT Report provided to day shift nurse. Pt is lying in bed resting. He is a 26 yo female admitted to [facility] on 11/23 at 2341 for BZD, ETOH, and Opiate dependence. He is A&O and ambulatory. NKA, full code, regular diet. PRN Ativan, Zofran, and Motrin administered. Last COWS 1 and CIWA 2 after medications. He refused blood draw on admission and this morning. He states that he will do it later. He drank 240mL and slept for 3 hours.
[2016-11-24 07:30] LABS: ALANINE AMINOTRANSFERASE 34 U/L (16-63); ALKALINE PHOSPHATASE 87 U/L (50-136); AMYLASE 66 U/L (25-115); ASPARTATE AMINOTRANSFERASE 30 U/L (15-37); BILIRUBIN,TOTAL 1.3 mg/dL (0.2-1.0); CARBON DIOXIDE 30 mmol/L (21-32); CHLORIDE 102 mmol/L (98-107); CREATININE 1.2 mg/dL (0.6-1.3); GLUCOSE 92 mg/dL (74-106); LIPASE 136 U/L (73-393); MAGNESIUM 2.1 mg/dL (1.8-2.4); POTASSIUM 3.8 mmol/L (3.5-5.1); TOTAL PROTEIN, SERUM 7.5 g/dL (6.4-8.2); UREA NITROGEN, BLOOD 11 mg/dL (7-18)
[2016-11-24 07:42] LABS: THYROID STIMULATING HORMONE 1.016 mIU/mL (0.358-3.740)
[2016-11-24 08:00] VITALS: BP 94/58
[2016-11-24 08:27] LABS: BASOPHILS % (AUTO) 0.2 % (0.0-2.0); EOSINOPHILS # (AUTO) 0.3 K/uL (0.0-0.7); HEMATOCRIT 40.3 % (40-50); HEMOGLOBIN 13.4 G/DL (14.0-18.0); LYMPHOCYTES # (AUTO) 1.3 K/UL (0.8-4.8); LYMPHOCYTES % (AUTO) 21.1 % (20.5-51.5); MEAN CORPUSCULAR HEMOGLOBIN 26.8 UUG (27.0-31.0); MEAN CORPUSCULAR HGB CONC 33 g/dL (32.0-37.0); MEAN CORPUSCULAR VOLUME 80.5 FL (82.0-92.0); MONOCYTES # (AUTO) 0.6 K/UL (0.1-1.30); MONOCYTES % (AUTO) 9.7 % (0.0-11.0); PLATELET COUNT (AUTO) 337 K/UL (150-450); WHITE BLOOD COUNT (AUTO) 6.2 K/UL (4.0-11.2)
[2016-11-24] MEDS: MULTIVITAMINS,THERAPEUTIC TABLET PO SCH (09:45)
--- NOTE | 2016-11-24 09:45 | NUR ---
PRN Medications PRN Zofran, Motrin and Vistaril 50mg for withdrawal symptoms of 5/10 anxiety, nausea and 5/10 pain.
[2016-11-24] MEDS: THIAMINE HCL 100 MG TABLET PO SCH (09:46)
[2016-11-24] MEDS: FOLIC ACID 1 MG TABLET PO SCH (09:46)
--- NOTE | 2016-11-24 10:20 | NUR ---
Medication re-assessment PT reports nausea has ceased, rated pain 2/10 and 2/10 anxiety. Medications were effective.
[2016-11-24] MEDS: DIAZEPAM 10 MG TABLET PO SCH ×4 (10:52→20:59)
[2016-11-24] MEDS ORDERED: DIAZEPAM 10 MG TABLET ONE (11:01)
[2016-11-24 12:00] VITALS: BP 108/52
[2016-11-24] MEDS ORDERED: BUPRENORPHINE HCL 2 MG TAB.SUBL SL SCH (13:00)
[2016-11-24] MEDS ORDERED: HYDROXYZINE PAMOATE 25 MG CAPSULE PO PRN ×2 (13:15)
[2016-11-24] MEDS: VENLAFAXINE XR 75 MG CAP.SR.24H PO SCH (13:15)
[2016-11-24 16:00] VITALS: BP 100/55
--- NOTE | 2016-11-24 18:48 | NUR ---
End of Shift Endorsement given to nightshift nurse. PT is a 26 y/o male admitted for Xanax, alcohol and Heroin. Pt has been placed on a 5 day Valium and 5 day Subutex taper. Pt has started Valium taper, Subutex taper will start on 11/25/16 due to low COWS score. Pt received PRN Motrin, Vistaril and Zofran for withdrawal symptoms. Pt presented with mild withdrawal symptoms AEB COWS 5, CIWA 5 at 1600. Encouraged pt to drink more fluids. Pt did not participate in groups or activities. Intake: 500ml, Void x2, BM x0. VS WNL. Full Code. . Pt is in STABLE condition at this time. Remains compliant with medication and diet regimen. All needs have been met, All safety measures in place per hospital policy. Bed in lowest position, side rails up x2, call-light within reach. Will continue to monitor.
--- NOTE | 2016-11-24 19:55 | NUR ---
START OF SHIFT Received report from day shift nurse. Pt is lying in bed watching TV. Pt is a 26 yo male admitted to the [facility] on 11/23/16 for BZD and opiate dependence. He is A&O x4 and ambulatory. NKA, full code status, and on a regular diet. He has a PMH of w/d related seizures, anxiety, depression, and ADHD. Last seizure was 10/2015. On admission her reported using xanax 8mg per day, ETOH 6 beers per day, and heroin IV 1.5 grams per day. He started a 5 day valium taper today with PRN subutex available for management of opiate withdrawal symptoms. Subutex taper has not started yet. Pt reports chills, sweating, body aches, restlessness. He is noted with moist skin and dilated pupils. Fall and seizure precautions in place. Bed is down with call light in reach.
[2016-11-24 20:00] VITALS: BP 123/71
[2016-11-24] MEDS: GABAPENTIN 300 MG CAPSULE PO SCH (20:59)
--- NOTE | 2016-11-24 21:00 | NUR ---
PRN Subutex administration Pt is experiencing chills, body aches, restlessness, tearing eyes, and anxiety. COWS score 14. PRN Subutex administered.
--- NOTE | 2016-11-24 22:00 | NUR ---
PRN Subutex reassessment PRN Subutex effective. Pt's symptoms are improved. COWS score reduced to 4. He is relaxed in bed. Safety measures in place.
[2016-11-25] VITALS: BP 129/63
[2016-11-25] MEDS: IBUPROFEN 400 MG TABLET PO PRN (01:24)
[2016-11-25] MEDS: CLONIDINE HCL 0.1 MG TABLET PO PRN (01:24)
[2016-11-25] MEDS: METHOCARBAMOL 750 MG TABLET PO PRN (01:24)
--- NOTE | 2016-11-25 01:25 | NUR ---
PRN Clonidine, Robaxin, and Motrin administration Pt c/o chills, restlessness, body aches, and headache. He has dilated pupils and moist skin. COWS score 12. PRN Clonidine, Robaxin, and Motrin administered.
--- NOTE | 2016-11-25 02:25 | NUR ---
PRN Clonidine, Robaxin, and Motrin reassessment PRN Clonidine, Robaxin, and Motrin effective. Pt is lying in bed resting with eyes closed. Respirations even and unlabored. COWS score 3. Safety measures in place.
[2016-11-25 04:00] VITALS: BP 120/66
--- NOTE | 2016-11-25 07:25 | NUR ---
END OF SHIFT Report provided to day shift nurse. Pt is lying in bed resting. Pt is a 26 yo male admitted to the [facility] on 11/23/16 for BZD and opiate dependence. He is A&O x4 and ambulatory. NKA, full code status, and on a regular diet. He has a PMH of w/d related seizures, anxiety, depression, and ADHD. Last seizure was 10/2015. On admission her reported using xanax 8mg per day, ETOH 6 beers per day, and heroin IV 1.5 grams per day. He started a 5 day valium taper 11/24. Subutex taper not initiated yet. First dose of PRN subutex administered for withdrawal symptoms. PRN Clonidine, Robaxin, and Motrin administered as well. Last COWS 2 and CIWA 2. He drank 1480mL and slept for 6 hours. Fall and seizure precautions in place. Bed is down with call light in reach.
--- NOTE | 2016-11-25 07:52 | NUR ---
START OF SHIFT Received patient this morning alert and oriented x4. Patient states he feels "crappy" and slept bad last night. He is on 5 day Valium/4 day Subutex taper. History of seizures. He is placed on seizure precautions. PRN Robaxin, Motrin, Clonidine, and Subutex given per night nurse with effectiveness. Patient slept 6 hours. Last COWS 2 CIWA 2 per night nurse. Will administer morning medications to help manage s/s of w/d. Encouraged patient to drink increased amounts of fluids this shift. Encouraged attendance of groups and activities. Will provide safe and supportive environment. Informed patient to notify RN if s/s of w/d worsen. Will continue to monitor.
[2016-11-25 08:00] VITALS: BP 106/65
[2016-11-25 08:09] LABS: HEPATITIS B SURFACE AG Negative (Negative)
[2016-11-25] MEDS: BUPRENORPHINE HCL 2 MG TAB.SUBL SL SCH ×3 (08:39→21:48)
[2016-11-25] MEDS: THIAMINE HCL 100 MG TABLET PO SCH (08:39)
[2016-11-25] MEDS: FOLIC ACID 1 MG TABLET PO SCH (08:39)
[2016-11-25] MEDS: DIAZEPAM 10 MG TABLET PO SCH ×3 (08:39→21:47)
[2016-11-25] MEDS: MULTIVITAMINS,THERAPEUTIC TABLET PO SCH (08:39)
[2016-11-25] MEDS: GABAPENTIN 300 MG CAPSULE PO SCH ×3 (08:40→21:47)
[2016-11-25] MEDS: VENLAFAXINE XR 75 MG CAP.SR.24H PO SCH ×2 (08:40→08:41)
--- NOTE | 2016-11-25 08:43 | NUR ---
Patient refused Effexor. he states he doesn't take that and never has and wasn't informed he was going to start this medication. Explained risks/benefits. Still refused.
[2016-11-25 12:00] VITALS: BP 115/66
--- NOTE | 2016-11-25 14:40 | NUR ---
MD communication Pt c/o itching to BLE. Dr Dumont notified, stated he would place orders. All other needs addressed at this time.
[2016-11-25] MEDS ORDERED: diphenhydrAMINE 2% 28.4 GM CREAM TP PRN (14:45)
--- NOTE | 2016-11-25 15:07 | NUR ---
This field underwriter met with the client and talked to the client about attending groups. Client said he didn't want to look at people and he complained about having a lot of anxiety"
--- NOTE | 2016-11-25 15:19 | NUR ---
Therapist advised client of group times. Client stated he is not going today because he doesn't feel well.
[2016-11-25 16:00] VITALS: BP 116/53
--- NOTE | 2016-11-25 18:44 | NUR ---
END OF SHIFT NOTE Patient continues on 5 day Valium/ 5 day Subutex taper and tolerating well. No PRNs given during shift as detox meds are effective. Patient stated he feels hopeless about recovery during shift but states he denies S/I and H/I- involved multidisciplinary team and therapist assessed patient. Last COWS 6 CIWA 5. Patient did not attend groups or activities and socialized himself in room during shift. All needs have been met. Safety measures in place. Will endorse to oncoming nurse.
--- NOTE | 2016-11-25 19:55 | NUR ---
START OF SHIFT Received report from day shift nurse. Pt is lying in bed watching TV. Pt is a 26 yo male admitted to the [facility] on 11/23/16 for BZD and opiate dependence. He is A&O x4 and ambulatory. NKA, full code status, and on a regular diet. He has a PMH of w/d related seizures, anxiety, depression, and ADHD. Last seizure was 10/2015. Upon admission he reported using xanax 8mg per day, ETOH 6 beers per day, and heroin IV 1.5 grams per day. He started a 5 day valium taper on 11/24 and 5 day subutex taper today. Pt reports chills, sweating, tearing eyes, body aches. His skin is moist. Fall and seizure precautions in place. Bed is down with call light in reach.
[2016-11-25 20:00] VITALS: BP 119/63
[2016-11-26] VITALS: BP 132/78
--- NOTE | 2016-11-26 04:00 | NUR ---
0400 Vitals refused. 0400 COWS and CIWA deferred. Pt refused to be woken for 0400 vitals. Pt is lying comfortably in bed. Respirations even and unlabored. COWS and CIWA ordered Q4HWA. Safety measures in place.
--- NOTE | 2016-11-26 07:23 | NUR ---
END OF SHIFT Report provided to day shift nurse. Pt is lying in bed resting. Pt is a 26 yo male admitted to the [facility] on 11/23/16 for BZD and opiate dependence. He is A&O x4 and ambulatory. NKA, full code status, and on a regular diet. He has a PMH of w/d related seizures, anxiety, depression, and ADHD. Last seizure was 10/2015. Upon admission he reported using xanax 8mg per day, ETOH 6 beers per day, and heroin IV 1.5 grams per day. He started a 5 day valium taper on 11/24 and 5 day subutex taper today. No PRN medications administered. Last COWS 5 and CIWA 3. He drank 2037mL and slept for 7 hours. Fall and seizure precautions in place. Bed is down with call light in reach.
--- NOTE | 2016-11-26 07:45 | NUR ---
START OF SHIFT Received patient this morning alert and oriented x4. Patient presented with flat mood and fatigued. He is on 5 day Valium/4 day Subutex taper. History of seizures. He is placed on seizure precautions. No PRNs given per toll patrolman. Patient slept 7 hours. Last COWS 5 CIWA 3 per night nurse. Encouraged patient to drink increased amounts of fluids this shift. Encouraged attendance of groups and activities. Will provide safe and supportive environment. Informed patient to notify RN if s/s of w/d worsen. Will continue to monitor.
[2016-11-26 08:00] VITALS: BP 109/66
[2016-11-26] MEDS: FOLIC ACID 1 MG TABLET PO SCH (08:24)
[2016-11-26] MEDS: MULTIVITAMINS,THERAPEUTIC TABLET PO SCH (08:24)
[2016-11-26] MEDS: DIAZEPAM 5 MG TABLET PO SCH ×4 (08:24→22:00)
[2016-11-26] MEDS: THIAMINE HCL 100 MG TABLET PO SCH (08:24)
[2016-11-26] MEDS: FLUOXETINE HCL 10 MG CAPSULE PO SCH (08:24)
[2016-11-26] MEDS: GABAPENTIN 300 MG CAPSULE PO SCH (08:25)
[2016-11-26] MEDS ORDERED: BUPRENORPHINE HCL 2 MG TAB.SUBL SL SCH (09:00)
[2016-11-26 12:00] VITALS: BP 127/68
[2016-11-26] MEDS ORDERED: diphenhydrAMINE/ZINC ACET CREAM 28 GM TUBE TOP PRN (13:30)
[2016-11-26] MEDS: BUPRENORPHINE HCL 2 MG TAB.SUBL SL SCH ×2 (14:11→22:00)
[2016-11-26 16:00] VITALS: BP 126/75
[2016-11-26] MEDS ORDERED: PERMETHRIN 5% CREAM 60 GM TUBE TP ONE (18:30)
--- NOTE | 2016-11-26 18:37 | NUR ---
END OF SHIFT NOTE Patient continues on 5 day Valium/ 5 day Subutex taper and tolerating well. No PRNs given during shift as detox meds are effective. Patient complains of itching and presents with reddened hands from scratching- Dr. Dumont notified and is going to come assess patient. Last COWS 2 CIWA 3. Chest xray complete today to r/o TB. Patient attended some groups and activities. All needs have been met. Safety measures in place. Will endorse to oncoming nurse.
--- NOTE | 2016-11-26 19:10 | NUR ---
Start of Shift Patient Received. Patient is in activities room participating in group meetings. Patient is a 26 year old male, admitted on 11/23/16 for Opiate, Benzo, and ETOH Dependence under the care of Dr. Dumont. Patient is currently receiving a 5 day Valium and 5 day Subutex taper. Patient verbalizes no known allergies, wishes to be full code, following a regular diet, placed on fall and seizure precautions. Skin is noted with multiple scattered scabs to bilateral hands and lower extremities. Per endorsement, patient has new order for topical cream for itching but patient noted refuse cream. Patient also noted to be cheeking medications. Will administer medications with KILN TENDER at bedside. All needs attended to promptly. Will continue plan of care as ordered.
[2016-11-26 20:45] VITALS: BP 120/83
[2016-11-27 00:25] VITALS: BP 118/73
[2016-11-27 04:15] VITALS: BP 118/73
--- NOTE | 2016-11-27 04:15 | NUR ---
COWS and CIWA Deferred Patient is in bed sleeping. Breathing even and non labored. No signs of pain or discomfort noted. CIWA and COWS deferred due to Q4HWA. Patient respiration noted to be 16. Will continue to monitor. Addendum: 11/27/16 at 0532 by MIA RAVI LVN Amended: Links added.
--- NOTE | 2016-11-27 07:25 | NUR ---
End of Shift Patient is in bed sleeping. Breathing even and non labored. No signs of pain or discomfort noted. Patient is a 26 year old male, admitted on 11/23/16 for Opiate, Benzo, and ETOH Dependence under the care of Dr. Dumont. Patient is currently receiving a 5 day Valium and 5 day Subutex taper. Patient verbalizes NKA, full code, regular diet, placed on fall and seizure precautions. Skin is noted with multiple scattered scabs to bilateral hands and lower extremities. Patient continues to complain of itching but is refusing topical medication. Patient verbalized I want someone qualified to tell me what is wrong with me skin to see me not just the nurses. No episodes of cheeking medications. Medications were administered with DENTAL CHAIRSIDE ASSISTANT and Primary nurse at bedside. Oral check rendered. All needs attended to promptly. Will endorse to continue plan of care as ordered.
--- NOTE | 2016-11-27 07:26 | NUR ---
Start of Shift Notes: Patient received in his room. Alert and oriented x 4. Able to make needs known. Respirations even and unlabored. No SOB noted. Skin warm and dry to touch. Abdomen soft and non-distended. BS (+) in all 4 quadrants. No complains of nausea, vomiting, diarrhea or constipation noted. No complains of abdominal discomfort noted. Voids independently. Ambulatory ad ras with steady gait. Patient is a 26 year old male admitted for opiate/ETOH and methamphatemine dependence who was placed on 5-day Valium and 5-day Subutex taper as ordered. Has past medical hx of seizures, depression, anxiety and ADHD. NKA. Full code. Regular diet. Educated patient on his current medication regimen and his current plan of care. Encouraged oral fluid intake and encouraged group participation to learn new skills to prevent relapse. Slept for 2 hours. Last COWS 3.CIWA 3 . Will continue to monitor closely.
[2016-11-27 08:00] VITALS: BP 99/53
[2016-11-27] MEDS: FLUOXETINE HCL 10 MG CAPSULE PO SCH (08:56)
[2016-11-27] MEDS: DIAZEPAM 5 MG TABLET PO SCH ×3 (08:56→21:09)
[2016-11-27] MEDS: BUPRENORPHINE HCL 2 MG TAB.SUBL SL SCH ×3 (08:56→21:09)
[2016-11-27] MEDS: MULTIVITAMINS,THERAPEUTIC TABLET PO SCH (08:56)
[2016-11-27] MEDS: THIAMINE HCL 100 MG TABLET PO SCH (08:56)
[2016-11-27] MEDS: FOLIC ACID 1 MG TABLET PO SCH (08:56)
[2016-11-27 12:00] VITALS: BP 123/77
--- NOTE | 2016-11-27 14:40 | NUR ---
MD Communication: Notified MD Dumont of patient's complain of itching and requested for Elimite cream. Per MD, OK to give Elimite cream. MD REDDY unable to enter in orders at this time. is driving and unable to enter in orders at this time. New orders received. Orders noted and carried out.
--- NOTE | 2016-11-27 14:41 | NUR ---
Add'l MD Communication: Per MD, there is no need to place patient on contact isolation at this time since patient's symptoms are not consistent with scabies and will treat patient prophylactically. Orders noted and carried out. Patient education provided. Good handwashing observed. Patient states he will comply.
[2016-11-27 16:00] VITALS: BP 107/50
--- NOTE | 2016-11-27 18:43 | NUR ---
End of Shift Notes: Patient is a 26 year old male admitted for opiate/ETOH and BZO dependence who was placed on a 5-day Valium and 5-day Subutex taper as ordered. No adverse reactions noted. Prior to admission, patient was using 8mg of Xanax, 6 beers and 1.5 gram of Heroin x 5 weeks. VS monitored closely. No significant abnormalities noted. Withdrawal symptoms were closely monitored. Patient presented with chils, anxiety, hot flashes, and cold sweats. Initial COWS 4/CIWA 3. Patient was unable to participate in group and therapy sessions due to his withdrawal symptoms. Requires encouragement to participate in group and socialize with his peers. Last COWS 3/CIWA 2. All needs met and attended. Will continue to monitor closely.
--- NOTE | 2016-11-27 19:06 | NUR ---
Start of shift note Received report from day shift nurse. Pt is a 26 yo male, A+Ox4, presenting to [facility] for ETOH/Benzo/Opiate dependence. Pt has NKA, is on full code status, and on Regular diet. Pt is on Fall and Seizure precautions. Pt has HX of Seizure, Anxiety, Depression, and ADHD. Pt is on 5 day Valium and 5 day Subutex tapers, tolerated well. No s/s of distress noted at this time. Respirations even and unlabored. Will continue to monitor.
[2016-11-27 20:58] VITALS: BP 119/67
[2016-11-27] MEDS ORDERED: PERMETHRIN 5% CREAM 60 GM TUBE TP ONE (21:00)
[2016-11-27] MEDS: IBUPROFEN 400 MG TABLET PO PRN (23:28)
--- NOTE | 2016-11-27 23:28 | NUR ---
PRN Motrin Pt c/o toothache and requested for PRN Motrin. Medication given and tolerated well. Will reassess within 1 HR. Will continue to monitor.
[2016-11-28 00:06] VITALS: BP 116/69
--- NOTE | 2016-11-28 00:25 | NUR ---
PRN Motrin Reassessment Medication effective. Pt expresses reduction in toothache. No s/s of ASE/distress noted at this time. Respirations even and unlabored. Will continue to monitor.
[2016-11-28 04:28] VITALS: BP 122/74
--- NOTE | 2016-11-28 06:56 | NUR ---
End of shift note Pt is a 26 yo male, A+Ox4, presenting to [facility] for ETOH/Benzo/Opiate dependence. Pt has NKA, is on Full Code status, and on Regular diet. Pt is on Fall and Seizure precautions. Pt has HX of Seizure, Anxiety, Depression, and ADHD. Pt is on 5 day Valium and 5 day Subutex tapers, tolerated well. Pt was given Elimite treatment @2320 and will require a shower @1120. Pt was given PRN Motrin @2328. Last COWS: 1 and Last CIWA: 1 @0400. No s/s of distress noted at this time. Respirations even and unlabored. Will endorse to day shift nurse.
--- NOTE | 2016-11-28 07:00 | NUR ---
Start of Shift Notes: Patient received in his room. Alert and oriented x 4. Able to make needs known. Respirations even and unlabored. No SOB noted. Skin warm and dry to touch. Abdomen soft and non-distended. BS (+) in all 4 quadrants. No complains of nausea, vomiting, diarrhea or constipation noted. No complains of abdominal discomfort noted. Voids independently. Ambulatory ad ras with steady gait. Patient is a 26 year old male admitted for opiate/ETOH and methamphatemine dependence who was placed on 5-day Valium and 5-day Subutex taper as ordered. Has past medical hx of seizures, depression, anxiety and ADHD. NKA. Full code. Regular diet. Educated patient on his current medication regimen and his current plan of care. Encouraged oral fluid intake and encouraged group participation to learn new skills to prevent relapse. Slept for 5 hours. Last COWS 1.CIWA 1 . Will continue to monitor closely.
[2016-11-28 08:00] VITALS: BP 133/64
[2016-11-28] MEDS ORDERED: BUPRENORPHINE HCL 2 MG TAB.SUBL SL SCH (09:00)
[2016-11-28] MEDS: THIAMINE HCL 100 MG TABLET PO SCH (09:20)
[2016-11-28] MEDS: FLUOXETINE HCL 10 MG CAPSULE PO SCH (09:20)
[2016-11-28] MEDS: DIAZEPAM 5 MG TABLET PO SCH ×2 (09:20→22:47)
[2016-11-28] MEDS: FOLIC ACID 1 MG TABLET PO SCH (09:20)
[2016-11-28] MEDS: MULTIVITAMINS,THERAPEUTIC TABLET PO SCH (09:20)
--- NOTE | 2016-11-28 11:20 | NUR ---
Nursing Note: Patient was encouraged to shower multiple times due to Elimite application at , but patient has been non-compliant. Multiple encouragement, and multiple staff reminded patient to shower but refuses. Patient states that he will get up from bed and shower but then does not get up. Attempts to deceive nurse and staff. Will continue to monitor and encourage.
[2016-11-28 12:00] VITALS: BP 113/61
--- NOTE | 2016-11-28 14:00 | NUR ---
Nursing Note: Patient showered at this time after multiple staff reminded him. Room was disinfected and all linen and clothes sent to laundry,
[2016-11-28 16:00] VITALS: BP 108/65
--- NOTE | 2016-11-28 18:46 | NUR ---
End of Shift Notes: Patient is a 26 year old male admitted for opiate/ETOH and BZO dependence who was placed on a 5-day Valium and 5-day Subutex taper as ordered. No adverse reactions noted. Prior to admission, patient was using 8mg of Xanax, 6 beers and 1.5 gram of Heroin x 5 weeks. VS monitored closely. No significant abnormalities noted. Withdrawal symptoms were closely monitored. Patient presented with chils, anxiety, hot flashes, and muscle aches . Initial COWS 5/CIWA 5. Requires encouragement to participate in group and socialize with his peers. Easily irritable and agitated. Needs encouragement to comply with treatment. Last COWS 2/CIWA 2. All needs met and attended. Will continue to monitor closely.
--- NOTE | 2016-11-28 19:00 | NUR ---
Start of shift note Received report from day shift nurse. Pt is a 26 yo male, A+Ox4, presenting to [facility] for ETOH/Benzo/Opiate dependence. Pt has NKA, is on full code status, and on Regular diet. Pt is on Fall and Seizure precautions. Pt has HX of Seizure, Anxiety, Depression, and ADHD. Pt is on 5 day Valium and 5 day Subutex tapers, tolerated well. No s/s of distress noted at this time. Respirations even and unlabored. Will continue to monitor.
[2016-11-28 20:15] VITALS: BP 115/55
[2016-11-28] MEDS: IBUPROFEN 400 MG TABLET PO PRN (22:55)
--- NOTE | 2016-11-28 22:55 | NUR ---
PRN Motrin Pt c/o toothache and requested for PRN Motrin. Medication given and tolerated well. Will reassess within 1 HR. Will continue to monitor.
--- NOTE | 2016-11-28 23:45 | NUR ---
PRN Motrin Reassessment Medication effective. Pt expresses reduction in toothache. No s/s of ASE/distress noted at this time. Respirations even and unlabored. Will continue to monitor.
[2016-11-29 00:11] VITALS: BP 116/67
[2016-11-29 04:19] VITALS: BP 119/71
--- NOTE | 2016-11-29 07:00 | NUR ---
End of shift note Pt is a 26 yo male, A+Ox4, presenting to [facility] for ETOH/Benzo/Opiate dependence. Pt has NKA, is on Full Code status, and on Regular diet. Pt is on Fall and Seizure precautions. Pt has HX of Seizure, Anxiety, Depression, and ADHD. Pt is on 5 day Valium and 5 day Subutex tapers, tolerated well. Pt was given PRN Motrin @2255. Pt slept for a total of 5 HRS. Last COWS: 1 and Last CIWA: 2 @0400. No s/s of distress noted at this time. Respirations even and unlabored. Will endorse to day shift nurse.
--- NOTE | 2016-11-29 07:25 | NUR ---
Start of shift note SBAR report rcv'd. Pt was admitted for benzo, ETOH and opiate dependence. Pt has a PMHx of depression, anxiety, ADHD and seizures. Pt has NKA and is a full code and on a regular diet. Pt has completed his subutex and valium taper without any ASE. Pt is currently resting in bed, pt has no complaints at this time. Will continue to monitor pt. All needs addressed at this time.
[2016-11-29 08:00] VITALS: BP 115/64
[2016-11-29] MEDS: THIAMINE HCL 100 MG TABLET PO SCH (09:18)
[2016-11-29] MEDS: MULTIVITAMINS,THERAPEUTIC TABLET PO SCH (09:18)
[2016-11-29] MEDS: FOLIC ACID 1 MG TABLET PO SCH (09:18)
[2016-11-29] MEDS: FLUOXETINE HCL 10 MG CAPSULE PO SCH (09:18)
--- NOTE | 2016-11-29 11:06 | NUR ---
Endorsement SBAR report endorsed to Edelmira Don RN
--- NOTE | 2016-11-29 11:08 | NUR ---
ASSUMED CARE OF PT.
[2016-11-29 12:00] VITALS: BP 124/78
--- NOTE | 2016-11-29 12:35 | NUR ---
PT C/O TOOTHACHE 5/10 ON PAIN SCALE. MOTRIN PRN GIVEN. WILL MONITOR EFFECTIVENESS OF MED.
[2016-11-29] MEDS: IBUPROFEN 400 MG TABLET PO PRN ×2 (13:30→23:28)
--- NOTE | 2016-11-29 13:35 | NUR ---
PT STATES THE MOTRIN WAS EFFECTIVE. PAIN 2/10 ON SCALE.
[2016-11-29 16:00] VITALS: BP 90/60
[2016-11-29] MEDS ORDERED: ONDA4TAB5 PO (17:33)
[2016-11-29] MEDS ORDERED: METH-406 PO (17:33)
--- NOTE | 2016-11-29 18:34 | NUR ---
END OF SHIFT; PT HAS COMPLETED TAPERS AND SCHEDULED FOR DISCHARGE ON 11/30/16. ENDORSING UDS TO ENVIRONMENTAL HEALTH AND SAFETY INTERN NURSE. DISCHARGE PLANNING IN PROGRESS. MOTRIN PRN GIVEN X 1 FOR TOOTHACHE AND EFFECTIVE. LAST COWS 1 AND LAST CIWA 1. PT ATTENDED GROUPS AND INTERACTS WITH PEERS. WILL PASS SHIFT REPORT TO ONCOMING NIGHT NURSE.
--- NOTE | 2016-11-29 19:05 | NUR ---
Start of shift note Received report from day shift nurse. Pt is a 26 yo male, A+Ox4, presenting to [facility] for ETOH/Benzo/Opiate dependence. Pt has NKA, is on full code status, and on Regular diet. Pt is on Fall and Seizure precautions. Pt has HX of Seizure, Anxiety, Depression, and ADHD. Pt has completed 5 day Valium and 5 day Subutex tapers, tolerated well, and is due for discharge tomorrow. No s/s of distress noted at this time. Respirations even and unlabored. Will continue to monitor.
[2016-11-29 20:07] VITALS: BP 127/73
[2016-11-29] MEDS: CLONIDINE HCL 0.1 MG TABLET PO PRN (21:07)
[2016-11-29] MEDS: METHOCARBAMOL 750 MG TABLET PO PRN (21:07)
--- NOTE | 2016-11-29 21:07 | NUR ---
PRN Clonidine, Robaxin, and Vistaril Pt c/o anxiety and general body pain 12/15 and requested for PRN Clonidine, Vistaril, and Robaxin. Medications given and tolerated well. Will reassess within 1 HR. Will continue to monitor.
--- NOTE | 2016-11-29 22:02 | NUR ---
PRN Clonidine, Vistaril, and Robaxin Reassessment Medications effective. Pt expresses reduction ini anxiety and general body pain is emil 3/10. No s/s of ASE/distress noted at this time. Respirations even and unlabored. Will continue to monitor.
--- NOTE | 2016-11-29 23:28 | NUR ---
PRN Motrin Pt c/o toothache and requested for PRN Motrin. Medication given and tolerated well. Will reassess within 1 HR. Will continue to monitor.
[2016-11-30 00:19] VITALS: BP 129/73
--- NOTE | 2016-11-30 00:23 | NUR ---
PRN Motrin Reassessment Medication effective. Pt expresses reduction in toothache. No s/s of ASE/distress noted at this time. Respirations even and unlabored. Will continue to monitor.
[2016-11-30 04:14] VITALS: BP 125/71
[2016-11-30 06:48] LABS: *AMPHETAMINE, URINE NEGATIVE (NEGATIVE); *BARBITURATE, URINE NEGATIVE (NEGATIVE); *CANNABINOID, URINE NEGATIVE (NEGATIVE); *COCCAINE, URINE NEGATIVE (NEGATIVE); *OPIATE, URINE NEGATIVE (NEGATIVE); *PHENCYCLIDINE SCREEN,URINE NEGATIVE (NEGATIVE)
--- NOTE | 2016-11-30 07:00 | NUR ---
End of shift note Pt is a 26 yo male, A+Ox4, presenting to [facility] for ETOH/Benzo/Opiate dependence. Pt has NKA, is on Full Code status, and on Regular diet. Pt is on Fall and Seizure precautions. Pt has HX of Seizure, Anxiety, Depression, and ADHD. Pt has completed 5 day Valium and 5 day Subutex tapers, tolerated well, and is due for discharge today. Pt was given PRN Clonidine, Vistaril, and Robaxin @2107 and PRN Motrin @7518. Pt slept for a total of 6 HRS. Last COWS: 1 and Last CIWA: 1 @0400. No s/s of distress noted at this time. Respirations even and unlabored. Will endorse to day shift nurse.
--- NOTE | 2016-11-30 07:05 | NUR ---
start of shift note: received pt from emt p nurse, pt is in stable condition at this time. no s/s of withdrawal. pts last ciwa 1 and last cows 1. pt slept 6 hrs. pt was admitted to [facility] for opiate/benzo/etoh withdrawal/dependence. pt is set for discharge today. will assist pt in discharging and will continue to monitor pt for any changes.
[2016-11-30] MEDS: IBUPROFEN 400 MG TABLET PO PRN (08:11)
[2016-11-30] MEDS: THIAMINE HCL 100 MG TABLET PO SCH (08:11)
[2016-11-30] MEDS: FOLIC ACID 1 MG TABLET PO SCH (08:11)
[2016-11-30] MEDS: FLUOXETINE HCL 10 MG CAPSULE PO SCH (08:11)
[2016-11-30] MEDS: MULTIVITAMINS,THERAPEUTIC TABLET PO SCH (08:11)
--- NOTE | 2016-11-30 09:24 | NUR ---
discharge note: pt complained of tooth pain PRN, motrin was administered. pt verbalized medication is effective. pt without withdrawal symptoms. pt teaching administered and pt verbalized understanding. all personal belongings have been returned. Pt's V/S WNL. PT WILL BE TRANSFERRED TO ABLE TO CHANGE VIA PRIVATE CAR
== END 2016-11-30 09:24 | disposition other institution (70) | DRG 895 ==
LOC: SRC 23:03
PROVIDERS: ADMIT Internal Medicine; ATTEND Internal Medicine
PROC: HZ2ZZZZ Detoxification Services for Substance Abuse Treatment (ICD-10-PCS; principal; 2016-11-23)
PROC: HZ31ZZZ Individual Counseling for Substance Abuse Treatment, Behavioral (ICD-10-PCS; 2016-11-25)
PROC: HZ41ZZZ Group Counseling for Substance Abuse Treatment, Behavioral (ICD-10-PCS; 2016-11-26)
DX: F13.230 Sedative, hypnotic or anxiolytic dependence with withdrawal, uncomplicated (principal); F11.23 Opioid dependence with withdrawal; F10.230 Alcohol dependence with withdrawal, uncomplicated; Y90.9 Presence of alcohol in blood, level not specified; G47.00 Insomnia, unspecified; F32.9 Major depressive disorder, single episode, unspecified; F17.210 Nicotine dependence, cigarettes, uncomplicated; F41.9 Anxiety disorder, unspecified; R21 Rash and other nonspecific skin eruption; Z83.3 Family history of diabetes mellitus; Z81.8 Family history of other mental and behavioral disorders
CPT/HCPCS: 36415; 70030-TC; 71010; 80307; 80361; 83690; 83735; 84443; 85025; 86705; 87340; 87806; A4663; G0480; Q0162; Q0163